=== PATIENT | male | born 1955 | race Caucasian/White ===

== ENCOUNTER 2020-09-30 16:29 | Inpatient (IN) | payer MEDICARE, OTHER ==
[~2020-09-30] VITALS: Ht 170.2 cm; Wt 81.7 kg
[2020-09-30] MEDS ORDERED: OMEP20 PO (16:37)
[2020-09-30] MEDS ORDERED: ATOR20TA86 PO (16:37)
[2020-09-30] MEDS ORDERED: NINT100C PO (16:37)
[2020-09-30] MEDS ORDERED: 0.9% SODIUM CHLORIDE 10 ML SYRINGE IVP PRN (16:45)
[2020-09-30] MEDS ORDERED: DEXAMETHASONE SOD PHOS 4 MG/ML 5 ML VIAL IVP ONE (16:45)
[2020-09-30 16:49] LABS: ABG A-A DIFF O2 620.1 mmHg (10-20.0); ABG BASE EXCESS -2.5 mmol/L (-2.0-3.0); ABG CARBOXYHEMOGLOBIN 1.2 % (0.0-1.5); ABG METHEMOGLOBIN 0.1 % (0.0-1.5); ABG OXYGEN CONTENT 20.4 mL/dL (15.0-23.0); ABG OXYGEN SATURATION 92.1 % (95.0-98.0); ABG OXYHEMOGLOBIN 90.9 % (94.0-100.0); ABG PCO2 33 mmHg (35-45); ABG PH 7.434 (7.35-7.450); PO2, ARTERIAL BG 59.7 mmHg (79.0-87.0); SOURCE, BLOOD GAS ARTERIAL; TEMPERATURE, FAHRENHEIT, BG 98.6 FAHREN (96.0-98.6)
[2020-09-30 16:51] LABS: O2 DEVICE,BLOOD GAS NON REBREATHER (ROOM AIR); SITE, BLOOD GAS LFT RADIAL
[2020-09-30 17:14] LABS: BASOPHILS % (AUTO) 0.2 % (0.0-2.0); EOSINOPHILS % (AUTO) 0.1 % (1.0-6.0); HEMATOCRIT 45.5 % (41-53); HEMOGLOBIN 15.7 g/dL (13.5-17.5); LYMPHOCYTES # (AUTO) 1.1 K/uL (1.0-4.8); LYMPHOCYTES % (AUTO) 5.5 % (22.0-44.0); MEAN CORPUSCULAR HEMOGLOBIN 32.4 pg (26.0-34.0); MEAN CORPUSCULAR HGB CONC 34.5 G/dL (31.0-37.0); MEAN CORPUSCULAR VOLUME 94 fL (80-100); MONOCYTES # (AUTO) 0.9 K/uL (0.1-1.0); MONOCYTES % (AUTO) 4.4 % (2.0-9.0); NEUTROPHILS # (AUTO) 18.4 K/uL (1.8-7.7); NEUTROPHILS % (AUTO) 89.8 % (40.0-70.0); PLATELET COUNT (AUTO) 302 K/uL (150-450); RED BLOOD CELL COUNT(AUTO) 4.85 MIL/uL (4.50-5.90); RED CELL DISTRIBUTION WIDTH 12.9 % (11.5-14.5)
[2020-09-30 17:23] LABS: ANION GAP 18 mmol/L (8-16); CALCIUM, TOTAL 9.4 mg/dL (8.8-10.5); CARBON DIOXIDE 24 mmol/L (22-29); CHLORIDE 97 mmol/L (98-107); CREATININE 1.23 mg/dL (0.60-1.30); GLOMERULAR FILTR. RATE CALC 59 mL/min (>60); GLUCOSE,RANDOM 129 mg/dL (70-110); POTASSIUM 3.4 mmol/L (3.5-5.1); SODIUM SERUM 139 mmol/L (136-145); UREA NITROGEN, BLOOD 26 mg/dL (7-18)
[2020-09-30 17:32] LABS: PLATELET MORPHOLOGY COMMENT LARGE PLTS PRESENT
[2020-09-30 17:33] LABS: D-DIMER 25.39 mg/L FEU (0.00-0.50); INR 1.1 (0.9-1.1); PROTHROMBIN TIME 11.4 SEC (9.4-11.6)
[2020-09-30 17:41] LABS: B-TYPE NATRIURETIC PEPTIDE 78 pg/mL (0-100)
[2020-09-30 18:05] LABS: ALANINE AMINOTRANSFERASE 51 U/L (12-78); ALBUMIN 3.5 g/dL (3.4-5.0); ALKALINE PHOSPHATASE 88 U/L (46-116); ASPARTATE AMINOTRANSFERASE 49 U/L (15-37); C-REACTIVE PROTEIN QUANT 2.31 mg/dL (0.00-0.30); CREATINE KINASE, TOTAL ONLY 180 U/L (39-308); FERRITIN 2310 ng/mL (26-388)
[2020-09-30 18:32] LABS: COVID AG,FIA SOURCE NASOPHARYNGEAL
[2020-09-30] MEDS ORDERED: SODIUM CHLORIDE 0.9% 100 ML ONE (18:49)
[2020-09-30] MEDS ORDERED: IOVERSOL 350 MG/ML 100 ML VIAL ONE (18:50)
[2020-09-30 18:54] LABS: INFLUENZA TYPE A NEGATIVE FOR TYPE A (NEGATIVE); INFLUENZA TYPE B NEGATIVE FOR TYPE B (NEGATIVE)
[2020-09-30] MEDS ORDERED: PIPERACILLIN/TAZO 3.375 GM/D5W 50 ML IV ONE (20:30)
[2020-09-30] MEDS ORDERED: AZITHROMYCIN 500 MG/NS 250 ML IV ONE (20:30)
[2020-09-30] MEDS ORDERED: HEPARIN SODIUM,PORCINE 5,000 UNITS/ML VIAL IVP ONE (21:45)
[2020-09-30] MEDS ORDERED: HEPARIN SODIUM,PORCINE 5,000 UNITS/ML VIAL IVP PRN (21:45)
[2020-09-30 22:01] LABS: BASOPHILS % (AUTO) 0.2 % (0.0-2.0); EOSINOPHILS % (AUTO) 0 % (1.0-6.0); HEMATOCRIT 35.7 % (41-53); HEMOGLOBIN 12.5 g/dL (13.5-17.5); LYMPHOCYTES # (AUTO) 0.4 K/uL (1.0-4.8); MEAN CORPUSCULAR HEMOGLOBIN 33.3 pg (26.0-34.0); MEAN CORPUSCULAR HGB CONC 34.8 G/dL (31.0-37.0); MEAN CORPUSCULAR VOLUME 96 fL (80-100); MONOCYTES # (AUTO) 0.1 K/uL (0.1-1.0); MONOCYTES % (AUTO) 1.4 % (2.0-9.0); NEUTROPHILS # (AUTO) 9.5 K/uL (1.8-7.7); PLATELET COUNT (AUTO) 199 K/uL (150-450); RED BLOOD CELL COUNT(AUTO) 3.74 MIL/uL (4.50-5.90); RED CELL DISTRIBUTION WIDTH 12.8 % (11.5-14.5)
[2020-09-30 22:07] LABS: NEUTROPHILS % (AUTO) 94.4 % (40.0-70.0)
[2020-09-30 22:23] LABS: INR 1.2 (0.9-1.1); PROTHROMBIN TIME 12.4 SEC (9.4-11.6)
[2020-09-30] MEDS: HEPARIN SODIUM 25000 UNITS/D5W 250 ML IV PRN (22:34)
[2020-09-30] MEDS ORDERED: POTASSIUM CHLORIDE 20 MEQ ER TABLET PO PRN (22:45)
[2020-09-30] MEDS ORDERED: MAGNESIUM SULFATE 2 GM/WATER 50 ML IV PRN (22:45)
[2020-09-30] MEDS ORDERED: *CLINICAL-WARFARIN SODIUM DOSING CLINICAL ONE (22:45)
[2020-09-30] MEDS ORDERED: MAGNESIUM OXIDE 400 MG TABLET PO PRN (22:45)
[2020-09-30] MEDS ORDERED: MAGNESIUM SULFATE 4 GM/WATER 100 ML IV PRN (22:45)
[2020-09-30] MEDS ORDERED: POTASSIUM CHL 10 MEQ/WATER 50 ML IV PRN (22:45)
[2020-09-30] MEDS: OMEPRAZOLE 20 MG CAPSULE PO SCH (23:47)
[2020-10-01] MEDS: PIPERACILLIN/TAZO 3.375 GM/D5W 50 ML IV SCH ×4 (02:49→20:29)
[2020-10-01 05:41] LABS: ANION GAP 10 mmol/L (8-16); CALCIUM, TOTAL 8.9 mg/dL (8.8-10.5); CARBON DIOXIDE 29 mmol/L (22-29); CHLORIDE 107 mmol/L (98-107); GLOMERULAR FILTR. RATE CALC > 60 mL/min (>60); GLUCOSE,RANDOM 126 mg/dL (70-110); POTASSIUM 3.9 mmol/L (3.5-5.1); SODIUM SERUM 146 mmol/L (136-145); UREA NITROGEN, BLOOD 24 mg/dL (7-18)
[2020-10-01] MEDS: HEPARIN SODIUM,PORCINE 5,000 UNITS/ML VIAL IVP PRN ×2 (07:31→16:09)
[2020-10-01] MEDS: OMEPRAZOLE 20 MG CAPSULE PO SCH (09:53)
[2020-10-01 11:11] LABS: BASOPHILS % (AUTO) 1.2 % (0.0-2.0); EOSINOPHILS % (AUTO) 0 % (1.0-6.0); HEMOGLOBIN 13.8 g/dL (13.5-17.5); LYMPHOCYTES # (AUTO) 0.8 K/uL (1.0-4.8); MEAN CORPUSCULAR HEMOGLOBIN 33.1 pg (26.0-34.0); MEAN CORPUSCULAR HGB CONC 34.5 G/dL (31.0-37.0); MEAN CORPUSCULAR VOLUME 96 fL (80-100); MONOCYTES # (AUTO) 0.4 K/uL (0.1-1.0); MONOCYTES % (AUTO) 4.7 % (2.0-9.0); NEUTROPHILS # (AUTO) 7.4 K/uL (1.8-7.7); NEUTROPHILS % (AUTO) 85.1 % (40.0-70.0); PLATELET COUNT (AUTO) 233 K/uL (150-450); RED BLOOD CELL COUNT(AUTO) 4.18 MIL/uL (4.50-5.90); RED CELL DISTRIBUTION WIDTH 12.8 % (11.5-14.5)
[2020-10-01] MEDS ORDERED: VANCOMYCIN HCL 1.5 GM in DEXTROSE 5%-WATER 250 ML IV ONE (15:00)
[2020-10-01 19:00] VITALS: BP 113/83
[2020-10-01 20:00] VITALS: BP 114/72
[2020-10-01] MEDS: ATORVASTATIN CALCIUM 20 MG TABLET PO SCH (20:28)
[2020-10-01] MEDS: MethylPREDNISolone SOD SUCC 125 MG/2 ML VIAL IVP SCH (20:28)
[2020-10-01 21:00] VITALS: BP 107/64
[2020-10-01 22:00] VITALS: BP 114/54
[2020-10-01 23:00] VITALS: BP 103/60
[2020-10-02] VITALS (13 sets, daily range): BP systolic 100–119; BP diastolic 52–77
[2020-10-02] MEDS: MethylPREDNISolone SOD SUCC 125 MG/2 ML VIAL IVP SCH ×5 (00:18→23:08)
[2020-10-02] MEDS: PIPERACILLIN/TAZO 3.375 GM/D5W 50 ML IV SCH ×4 (03:04→22:31)
[2020-10-02] MEDS: HEPARIN SODIUM 25000 UNITS/D5W 250 ML IV PRN (06:49)
[2020-10-02 07:09] LABS: ANION GAP 7 mmol/L (8-16); CARBON DIOXIDE 32 mmol/L (22-29); CHLORIDE 107 mmol/L (98-107); CREATININE 1.02 mg/dL (0.60-1.30); GLOMERULAR FILTR. RATE CALC > 60 mL/min (>60); GLUCOSE,RANDOM 159 mg/dL (70-110); POTASSIUM 4.2 mmol/L (3.5-5.1); SODIUM SERUM 146 mmol/L (136-145); UREA NITROGEN, BLOOD 25 mg/dL (7-18)
[2020-10-02 07:54] LABS: BASOPHILS % (AUTO) 0.2 % (0.0-2.0); EOSINOPHILS % (AUTO) 0 % (1.0-6.0); HEMATOCRIT 38.3 % (41-53); HEMOGLOBIN 13.2 g/dL (13.5-17.5); LYMPHOCYTES # (AUTO) 0.5 K/uL (1.0-4.8); LYMPHOCYTES % (AUTO) 5.1 % (22.0-44.0); MEAN CORPUSCULAR HEMOGLOBIN 32.8 pg (26.0-34.0); MEAN CORPUSCULAR HGB CONC 34.4 G/dL (31.0-37.0); MEAN CORPUSCULAR VOLUME 95 fL (80-100); MONOCYTES # (AUTO) 0.1 K/uL (0.1-1.0); MONOCYTES % (AUTO) 1.4 % (2.0-9.0); NEUTROPHILS # (AUTO) 9.1 K/uL (1.8-7.7); PLATELET COUNT (AUTO) 252 K/uL (150-450); RED BLOOD CELL COUNT(AUTO) 4.02 MIL/uL (4.50-5.90); RED CELL DISTRIBUTION WIDTH 12.7 % (11.5-14.5)
[2020-10-02 08:03] LABS: NEUTROPHILS % (AUTO) 93.3 % (40.0-70.0)
[2020-10-02 08:07] LABS: ALANINE AMINOTRANSFERASE 38 U/L (12-78); ALBUMIN 2.9 g/dL (3.4-5.0); ALKALINE PHOSPHATASE 68 U/L (46-116); ASPARTATE AMINOTRANSFERASE 34 U/L (15-37); BILIRUBIN,TOTAL 0.7 mg/dL (0.1-1.0); TOTAL PROTEIN, SERUM 7.5 g/dL (6.4-8.2)
[2020-10-02] MEDS: VANCOMYCIN HCL 1 GM/D5% WATER 200 ML IV SCH ×2 (08:37→20:00)
[2020-10-02] MEDS: OMEPRAZOLE 20 MG CAPSULE PO SCH (09:26)
[2020-10-02] MEDS: APIXABAN 5 MG TABLET PO SCH ×2 (09:26→19:59)
[2020-10-02] MEDS ORDERED: SODIUM CHLORIDE 0.9% 250 ML IV ONE (15:03)
[2020-10-02] MEDS: ATORVASTATIN CALCIUM 20 MG TABLET PO SCH (19:59)
[2020-10-02] MEDS ORDERED: REMDESIVIR 200 MG in SODIUM CHLORIDE 0.9% 250 ML IV ONE (21:00)
[2020-10-03 00:10] VITALS: BP 105/64
[2020-10-03] MEDS: PIPERACILLIN/TAZO 3.375 GM/D5W 50 ML IV SCH ×4 (03:32→20:14)
[2020-10-03 04:15] VITALS: BP 116/70
[2020-10-03] MEDS: MethylPREDNISolone SOD SUCC 125 MG/2 ML VIAL IVP SCH ×4 (05:05→23:55)
[2020-10-03 07:05] LABS: ALANINE AMINOTRANSFERASE 33 U/L (12-78); ALBUMIN 2.6 g/dL (3.4-5.0); ALKALINE PHOSPHATASE 56 U/L (46-116); ANION GAP 8 mmol/L (8-16); ASPARTATE AMINOTRANSFERASE 24 U/L (15-37); BILIRUBIN,TOTAL 0.5 mg/dL (0.1-1.0); CALCIUM, TOTAL 8.7 mg/dL (8.8-10.5); CARBON DIOXIDE 31 mmol/L (22-29); CHLORIDE 102 mmol/L (98-107); GLOMERULAR FILTR. RATE CALC > 60 mL/min (>60); GLUCOSE,RANDOM 122 mg/dL (70-110); POTASSIUM 3.6 mmol/L (3.5-5.1); SODIUM SERUM 141 mmol/L (136-145); TOTAL PROTEIN, SERUM 6.6 g/dL (6.4-8.2); UREA NITROGEN, BLOOD 21 mg/dL (7-18); VANCOMYCIN,RANDOM 9.5 mcg/mL (25.0-50.0)
[2020-10-03] MEDS: VANCOMYCIN HCL 1.25 GM in DEXTROSE 5%-WATER 250 ML IV SCH ×3 (08:24→23:56)
[2020-10-03] MEDS: OMEPRAZOLE 20 MG CAPSULE PO SCH (08:24)
[2020-10-03] MEDS: APIXABAN 5 MG TABLET PO SCH ×2 (08:24→20:14)
[2020-10-03 08:26] VITALS: BP 106/65
[2020-10-03 11:32] VITALS: BP 106/59
[2020-10-03 16:09] VITALS: BP 112/68
[2020-10-03 19:23] VITALS: BP 114/72
[2020-10-03] MEDS: ATORVASTATIN CALCIUM 20 MG TABLET PO SCH (20:14)
[2020-10-03] MEDS ORDERED: SODIUM CHLORIDE 0.9% 500 ML IV ONE (20:19)
[2020-10-03] MEDS: REMDESIVIR 100 MG in SODIUM CHLORIDE 0.9% 250 ML IV SCH (22:26)
[2020-10-04] VITALS (7 sets, daily range): BP systolic 106–121; BP diastolic 62–75
[2020-10-04] MEDS: PIPERACILLIN/TAZO 3.375 GM/D5W 50 ML IV SCH ×4 (03:24→20:16)
[2020-10-04] MEDS: MethylPREDNISolone SOD SUCC 125 MG/2 ML VIAL IVP SCH ×4 (05:37→23:01)
[2020-10-04 06:44] LABS: ALANINE AMINOTRANSFERASE 30 U/L (12-78); ALBUMIN 2.5 g/dL (3.4-5.0); ALKALINE PHOSPHATASE 57 U/L (46-116); ANION GAP 6 mmol/L (8-16); ASPARTATE AMINOTRANSFERASE 25 U/L (15-37); BILIRUBIN,TOTAL 0.6 mg/dL (0.1-1.0); CALCIUM, TOTAL 8.3 mg/dL (8.8-10.5); CARBON DIOXIDE 33 mmol/L (22-29); CHLORIDE 106 mmol/L (98-107); CREATININE 0.81 mg/dL (0.60-1.30); GLOMERULAR FILTR. RATE CALC > 60 mL/min (>60); GLUCOSE,RANDOM 131 mg/dL (70-110); POTASSIUM 4.1 mmol/L (3.5-5.1); SODIUM SERUM 145 mmol/L (136-145); TOTAL PROTEIN, SERUM 6.3 g/dL (6.4-8.2); UREA NITROGEN, BLOOD 19 mg/dL (7-18)
[2020-10-04] MEDS: APIXABAN 5 MG TABLET PO SCH ×2 (07:54→20:16)
[2020-10-04] MEDS: OMEPRAZOLE 20 MG CAPSULE PO SCH (07:54)
[2020-10-04] MEDS: VANCOMYCIN HCL 1.25 GM in DEXTROSE 5%-WATER 250 ML IV SCH ×3 (07:54→23:01)
[2020-10-04] MEDS: ATORVASTATIN CALCIUM 20 MG TABLET PO SCH (20:16)
[2020-10-04] MEDS: REMDESIVIR 100 MG in SODIUM CHLORIDE 0.9% 250 ML IV SCH (21:41)
[2020-10-05] MEDS: PIPERACILLIN/TAZO 3.375 GM/D5W 50 ML IV SCH ×4 (02:32→20:02)
[2020-10-05 04:25] VITALS: BP 120/66
[2020-10-05] MEDS: MethylPREDNISolone SOD SUCC 125 MG/2 ML VIAL IVP SCH ×4 (05:01→23:08)
[2020-10-05 06:20] LABS: ALANINE AMINOTRANSFERASE 32 U/L (12-78); ALBUMIN 2.5 g/dL (3.4-5.0); ALKALINE PHOSPHATASE 54 U/L (46-116); ANION GAP 5 mmol/L (8-16); ASPARTATE AMINOTRANSFERASE 26 U/L (15-37); BILIRUBIN,TOTAL 0.6 mg/dL (0.1-1.0); CALCIUM, TOTAL 8.3 mg/dL (8.8-10.5); CARBON DIOXIDE 32 mmol/L (22-29); CHLORIDE 101 mmol/L (98-107); CREATININE 0.93 mg/dL (0.60-1.30); GLOMERULAR FILTR. RATE CALC > 60 mL/min (>60); GLUCOSE,RANDOM 125 mg/dL (70-110); POTASSIUM 3.9 mmol/L (3.5-5.1); SODIUM SERUM 138 mmol/L (136-145); TOTAL PROTEIN, SERUM 6.2 g/dL (6.4-8.2); UREA NITROGEN, BLOOD 20 mg/dL (7-18); VANCOMYCIN,RANDOM 26.3 mcg/mL (25.0-50.0)
[2020-10-05] MEDS: VANCOMYCIN HCL 1.25 GM in DEXTROSE 5%-WATER 250 ML IV SCH ×2 (07:28→16:00)
[2020-10-05] MEDS: OMEPRAZOLE 20 MG CAPSULE PO SCH (07:28)
[2020-10-05] MEDS: APIXABAN 5 MG TABLET PO SCH ×2 (07:28→20:02)
[2020-10-05 08:15] VITALS: BP 141/64
[2020-10-05 11:33] VITALS: BP 107/59
[2020-10-05 15:31] VITALS: BP 131/72
[2020-10-05 19:48] VITALS: BP 113/75
[2020-10-05] MEDS: ATORVASTATIN CALCIUM 20 MG TABLET PO SCH (20:02)
[2020-10-05] MEDS: REMDESIVIR 100 MG in SODIUM CHLORIDE 0.9% 250 ML IV SCH (22:45)
[2020-10-06 00:10] VITALS: BP 107/65
[2020-10-06] MEDS: VANCOMYCIN HCL 1.25 GM in DEXTROSE 5%-WATER 250 ML IV SCH ×2 (00:54→07:30)
[2020-10-06] MEDS: PIPERACILLIN/TAZO 3.375 GM/D5W 50 ML IV SCH ×2 (03:34→09:08)
[2020-10-06 04:00] VITALS: BP 106/62
[2020-10-06] MEDS: MethylPREDNISolone SOD SUCC 125 MG/2 ML VIAL IVP SCH ×3 (06:09→18:48)
[2020-10-06] MEDS: APIXABAN 5 MG TABLET PO SCH ×2 (07:30→21:03)
[2020-10-06] MEDS: OMEPRAZOLE 20 MG CAPSULE PO SCH (07:30)
[2020-10-06 07:53] LABS: ALANINE AMINOTRANSFERASE 38 U/L (12-78); ALBUMIN 2.9 g/dL (3.4-5.0); ALKALINE PHOSPHATASE 62 U/L (46-116); ANION GAP 6 mmol/L (8-16); ASPARTATE AMINOTRANSFERASE 33 U/L (15-37); BILIRUBIN,TOTAL 0.7 mg/dL (0.1-1.0); CALCIUM, TOTAL 8.9 mg/dL (8.8-10.5); CARBON DIOXIDE 33 mmol/L (22-29); CHLORIDE 103 mmol/L (98-107); CREATININE 0.99 mg/dL (0.60-1.30); GLOMERULAR FILTR. RATE CALC > 60 mL/min (>60); GLUCOSE,RANDOM 121 mg/dL (70-110); POTASSIUM 3.6 mmol/L (3.5-5.1); SODIUM SERUM 142 mmol/L (136-145); TOTAL PROTEIN, SERUM 6.9 g/dL (6.4-8.2); UREA NITROGEN, BLOOD 21 mg/dL (7-18)
[2020-10-06 09:13] VITALS: BP 123/72
[2020-10-06 12:10] VITALS: BP 121/69
[2020-10-06] MEDS: CeFAZolin 2 GM/DEXTROSE 50 ML IV SCH (16:00)
[2020-10-06 16:15] VITALS: BP 101/62
[2020-10-06] MEDS: ATORVASTATIN CALCIUM 20 MG TABLET PO SCH (21:02)
[2020-10-06] MEDS: LEVOFLOXACIN 750 MG/D5% WATER 150 ML IV SCH (21:03)
[2020-10-06 21:18] VITALS: BP 115/65
[2020-10-06] MEDS: REMDESIVIR 100 MG in SODIUM CHLORIDE 0.9% 250 ML IV SCH (22:59)
[2020-10-07] MEDS ORDERED: VANCOMYCIN HCL 1 GM/D5% WATER 200 ML IV SCH
[2020-10-07] MEDS: MethylPREDNISolone SOD SUCC 125 MG/2 ML VIAL IVP SCH ×5 (00:31→23:42)
[2020-10-07] MEDS: CeFAZolin 2 GM/DEXTROSE 50 ML IV SCH ×4 (00:31→23:44)
[2020-10-07] MEDS ORDERED: SODIUM CHLORIDE 0.9% 500 ML IV ONE (00:37)
[2020-10-07 00:46] VITALS: BP 132/77
[2020-10-07 04:28] VITALS: BP 105/68
[2020-10-07 07:23] LABS: ALBUMIN 2.4 g/dL (3.4-5.0); ANION GAP 4 mmol/L (8-16); CALCIUM, TOTAL 8.3 mg/dL (8.8-10.5); CARBON DIOXIDE 33 mmol/L (22-29); CHLORIDE 106 mmol/L (98-107); CREATININE 0.81 mg/dL (0.60-1.30); GLOMERULAR FILTR. RATE CALC > 60 mL/min (>60); GLUCOSE,RANDOM 103 mg/dL (70-110); SODIUM SERUM 143 mmol/L (136-145); UREA NITROGEN, BLOOD 20 mg/dL (7-18)
[2020-10-07 07:47] VITALS: BP 114/65
[2020-10-07] MEDS: OMEPRAZOLE 20 MG CAPSULE PO SCH (08:26)
[2020-10-07] MEDS: APIXABAN 5 MG TABLET PO SCH ×2 (08:26→20:18)
[2020-10-07 11:03] VITALS: BP 106/50
[2020-10-07 15:17] VITALS: BP 123/63
[2020-10-07] MEDS: LEVOFLOXACIN 750 MG/D5% WATER 150 ML IV SCH (17:48)
[2020-10-07] MEDS: ATORVASTATIN CALCIUM 20 MG TABLET PO SCH (20:18)
[2020-10-07 20:58] VITALS: BP 115/67
[2020-10-08 00:08] VITALS: BP 115/65
[2020-10-08] MEDS: MethylPREDNISolone SOD SUCC 125 MG/2 ML VIAL IVP SCH ×4 (05:24→23:35)
[2020-10-08 05:46] VITALS: BP 116/61
[2020-10-08 07:17] VITALS: BP 117/72
[2020-10-08] MEDS: CeFAZolin 2 GM/DEXTROSE 50 ML IV SCH ×3 (07:49→23:37)
[2020-10-08] MEDS: OMEPRAZOLE 20 MG CAPSULE PO SCH (07:50)
[2020-10-08] MEDS: APIXABAN 5 MG TABLET PO SCH ×2 (07:50→20:25)
[2020-10-08] MEDS: ZINC SULFATE 220 MG CAPSULE PO SCH ×2 (09:07→20:24)
[2020-10-08] MEDS: ASCORBIC ACID 500 MG TABLET PO SCH (09:07)
[2020-10-08 10:51] VITALS: BP 126/68
[2020-10-08 15:04] VITALS: BP 122/66
[2020-10-08] MEDS: LEVOFLOXACIN 750 MG/D5% WATER 150 ML IV SCH (17:31)
[2020-10-08] MEDS: ATORVASTATIN CALCIUM 20 MG TABLET PO SCH (20:24)
[2020-10-08 20:26] VITALS: BP 116/76
[2020-10-09 00:30] VITALS: BP 130/70
[2020-10-09] MEDS: MethylPREDNISolone SOD SUCC 125 MG/2 ML VIAL IVP SCH ×4 (05:10→23:57)
[2020-10-09 05:55] VITALS: BP 125/61
[2020-10-09 07:24] VITALS: BP 124/72
[2020-10-09] MEDS: CeFAZolin 2 GM/DEXTROSE 50 ML IV SCH ×3 (07:59→23:57)
[2020-10-09] MEDS: ZINC SULFATE 220 MG CAPSULE PO SCH ×2 (08:00→20:28)
[2020-10-09] MEDS: APIXABAN 5 MG TABLET PO SCH ×2 (08:00→20:28)
[2020-10-09] MEDS: OMEPRAZOLE 20 MG CAPSULE PO SCH (08:00)
[2020-10-09] MEDS: ASCORBIC ACID 500 MG TABLET PO SCH (08:00)
[2020-10-09 11:39] VITALS: BP 113/61
[2020-10-09 15:14] VITALS: BP 122/69
[2020-10-09] MEDS: LEVOFLOXACIN 750 MG/D5% WATER 150 ML IV SCH (17:26)
[2020-10-09 20:01] VITALS: BP 117/70
[2020-10-09] MEDS: ATORVASTATIN CALCIUM 20 MG TABLET PO SCH (20:28)
[2020-10-10] VITALS: BP 129/75
[2020-10-10 04:08] VITALS: BP 119/73
[2020-10-10] MEDS: MethylPREDNISolone SOD SUCC 125 MG/2 ML VIAL IVP SCH ×4 (05:50→23:07)
[2020-10-10] MEDS: CeFAZolin 2 GM/DEXTROSE 50 ML IV SCH ×3 (07:51→23:07)
[2020-10-10] MEDS: ASCORBIC ACID 500 MG TABLET PO SCH (07:51)
[2020-10-10] MEDS: OMEPRAZOLE 20 MG CAPSULE PO SCH (07:51)
[2020-10-10] MEDS: ZINC SULFATE 220 MG CAPSULE PO SCH ×2 (07:51→20:16)
[2020-10-10] MEDS: APIXABAN 5 MG TABLET PO SCH ×2 (07:52→20:16)
[2020-10-10 08:00] VITALS: BP 130/82
[2020-10-10] MEDS ORDERED: ASCO500 PO (10:46)
[2020-10-10] MEDS ORDERED: APIX5TAB PO (10:46)
[2020-10-10] MEDS ORDERED: ATOR20TA86 PO (10:46)
[2020-10-10] MEDS ORDERED: CEFA2PIG IV (10:47)
[2020-10-10] MEDS ORDERED: LEVO750P7 IV (10:48)
[2020-10-10] MEDS ORDERED: SM500I IVP (10:50)
[2020-10-10] MEDS ORDERED: OMEP20 PO (10:50)
[2020-10-10] MEDS ORDERED: ZINC220C14 PO (10:51)
[2020-10-10 12:00] VITALS: BP 127/71
[2020-10-10 16:00] VITALS: BP 124/68
[2020-10-10] MEDS: LEVOFLOXACIN 750 MG/D5% WATER 150 ML IV SCH (17:10)
[2020-10-10 19:50] VITALS: BP 116/69
[2020-10-10] MEDS: ATORVASTATIN CALCIUM 20 MG TABLET PO SCH (20:16)
[2020-10-11] VITALS (7 sets, daily range): BP systolic 107–129; BP diastolic 51–83
[2020-10-11] MEDS: MethylPREDNISolone SOD SUCC 125 MG/2 ML VIAL IVP SCH ×4 (05:25→23:38)
[2020-10-11] MEDS: ASCORBIC ACID 500 MG TABLET PO SCH (08:26)
[2020-10-11] MEDS: CeFAZolin 2 GM/DEXTROSE 50 ML IV SCH ×3 (08:26→23:38)
[2020-10-11] MEDS: ZINC SULFATE 220 MG CAPSULE PO SCH ×2 (08:26→20:51)
[2020-10-11] MEDS: OMEPRAZOLE 20 MG CAPSULE PO SCH (08:27)
[2020-10-11] MEDS: APIXABAN 5 MG TABLET PO SCH ×2 (08:27→20:52)
[2020-10-11 11:04] LABS: BASOPHILS % (AUTO) 0.2 % (0.0-2.0); EOSINOPHILS % (AUTO) 0.1 % (1.0-6.0); HEMATOCRIT 41.4 % (41-53); HEMOGLOBIN 13.7 g/dL (13.5-17.5); LYMPHOCYTES # (AUTO) 0.4 K/uL (1.0-4.8); LYMPHOCYTES % (AUTO) 2.4 % (22.0-44.0); MEAN CORPUSCULAR HEMOGLOBIN 32.8 pg (26.0-34.0); MEAN CORPUSCULAR HGB CONC 33.1 G/dL (31.0-37.0); MEAN CORPUSCULAR VOLUME 99 fL (80-100); MONOCYTES # (AUTO) 0.4 K/uL (0.1-1.0); MONOCYTES % (AUTO) 2.6 % (2.0-9.0); NEUTROPHILS # (AUTO) 15.8 K/uL (1.8-7.7); PLATELET COUNT (AUTO) 187 K/uL (150-450); RED BLOOD CELL COUNT(AUTO) 4.17 MIL/uL (4.50-5.90); RED CELL DISTRIBUTION WIDTH 13.3 % (11.5-14.5)
[2020-10-11 11:05] LABS: NEUTROPHILS % (AUTO) 94.7 % (40.0-70.0)
[2020-10-11 11:07] LABS: ANION GAP 6 mmol/L (8-16); CALCIUM, TOTAL 8.2 mg/dL (8.8-10.5); CARBON DIOXIDE 31 mmol/L (22-29); CHLORIDE 100 mmol/L (98-107); CREATININE 0.99 mg/dL (0.60-1.30); GLOMERULAR FILTR. RATE CALC > 60 mL/min (>60); GLUCOSE,RANDOM 180 mg/dL (70-110); POTASSIUM 4.2 mmol/L (3.5-5.1); SODIUM SERUM 137 mmol/L (136-145); UREA NITROGEN, BLOOD 23 mg/dL (7-18)
[2020-10-11] MEDS: LEVOFLOXACIN 750 MG/D5% WATER 150 ML IV SCH (18:09)
[2020-10-11] MEDS: ATORVASTATIN CALCIUM 20 MG TABLET PO SCH (20:51)
[2020-10-12 04:31] VITALS: BP 123/91
[2020-10-12] MEDS: MethylPREDNISolone SOD SUCC 125 MG/2 ML VIAL IVP SCH ×4 (06:45→23:31)
[2020-10-12 07:35] VITALS: BP 121/71
[2020-10-12] MEDS: APIXABAN 5 MG TABLET PO SCH ×2 (08:22→21:52)
[2020-10-12] MEDS: CeFAZolin 2 GM/DEXTROSE 50 ML IV SCH ×3 (08:22→23:31)
[2020-10-12] MEDS: OMEPRAZOLE 20 MG CAPSULE PO SCH (08:22)
[2020-10-12] MEDS: ZINC SULFATE 220 MG CAPSULE PO SCH ×2 (08:23→21:52)
[2020-10-12] MEDS: ASCORBIC ACID 500 MG TABLET PO SCH (08:23)
[2020-10-12 11:05] VITALS: BP 110/69
[2020-10-12 15:04] VITALS: BP 115/61
[2020-10-12] MEDS: LEVOFLOXACIN 750 MG/D5% WATER 150 ML IV SCH (17:10)
[2020-10-12 20:01] VITALS: BP 107/69
[2020-10-12] MEDS: ATORVASTATIN CALCIUM 20 MG TABLET PO SCH (21:52)
[2020-10-13 00:17] VITALS: BP 122/44
[2020-10-13 04:31] VITALS: BP 120/80
[2020-10-13] MEDS: MethylPREDNISolone SOD SUCC 125 MG/2 ML VIAL IVP SCH ×3 (05:13→18:50)
[2020-10-13] MEDS: ZINC SULFATE 220 MG CAPSULE PO SCH ×2 (08:15→20:39)
[2020-10-13] MEDS: OMEPRAZOLE 20 MG CAPSULE PO SCH (08:15)
[2020-10-13] MEDS: CeFAZolin 2 GM/DEXTROSE 50 ML IV SCH ×2 (08:15→16:16)
[2020-10-13] MEDS: APIXABAN 5 MG TABLET PO SCH ×2 (08:16→20:39)
[2020-10-13] MEDS: ASCORBIC ACID 500 MG TABLET PO SCH (08:16)
[2020-10-13 09:16] VITALS: BP 128/68
[2020-10-13 13:22] VITALS: BP 113/70
[2020-10-13] MEDS: LEVOFLOXACIN 750 MG/D5% WATER 150 ML IV SCH (17:33)
[2020-10-13 20:30] VITALS: BP 123/77
[2020-10-13] MEDS: ATORVASTATIN CALCIUM 20 MG TABLET PO SCH (20:39)
== END 2020-10-13 20:50 | DRG 177 ==
LOC: EMS 16:29 → AHU 21:00 → 5N 21:00
PROVIDERS: ADMIT Internal Medicine; ATTEND Internal Medicine
PROC: XW033E5 Introduction of Remdesivir Anti-infective into Peripheral Vein, Percutaneous Approach, New Technology Group 5 (ICD-10-PCS; principal; 2020-10-02)
DX: U07.1 COVID-19 (principal); I26.99 Other pulmonary embolism without acute cor pulmonale; J96.21 Acute and chronic respiratory failure with hypoxia; J12.82 Pneumonia due to coronavirus disease 2019; I24.8 Other forms of acute ischemic heart disease; E87.0 Hyperosmolality and hypernatremia; R78.81 Bacteremia; J47.0 Bronchiectasis with acute lower respiratory infection; E87.2 Acidosis; K21.9 Gastro-esophageal reflux disease without esophagitis; J43.8 Other emphysema; J84.112 Idiopathic pulmonary fibrosis; D64.9 Anemia, unspecified; E78.5 Hyperlipidemia, unspecified; I27.20 Pulmonary hypertension, unspecified; Z79.01 Long term (current) use of anticoagulants; Z87.891 Personal history of nicotine dependence
CPT/HCPCS: 36600; 71250; 71275; 82728; 82805; 83605; 83735; 85379; 86140; 87040; 87205; 87426; 87804; 93005; 93306; 97110; 97161; 97530; 99291; A9575; G0378; J0456; J0690; J1100; J1644; J1956; J2543; J2930; J3370; J7040; J7050; J7060; 36415-L1; 36415-TC; 71045-TC; 80202-TC; U0003